=== PATIENT | male | born 1985 | race Caucasian/White ===

== ENCOUNTER 2017-02-12 21:30 | Emergency (ER) | payer SELFPAY ==
[~2017-02-12] VITALS: Ht 180.3 cm; Wt 69.6 kg
[2017-02-12 21:44] VITALS: BP 137/93; TEMP 98
[2017-02-12] MEDS ORDERED: NORCO 325 MG-7.1 TAB PO (23:19)
[2017-02-12] MEDS ORDERED: BACTRIM DS 8001 TAB PO (23:19)
[2017-02-12 23:43] VITALS: PULSE 100
== END 2017-02-12 23:46 | disposition home or self-care (01) ==
LOC: COL.ER 21:30
DX: L02.512 Cutaneous abscess of left hand (principal); L03.012 Cellulitis of left finger; F17.210 Nicotine dependence, cigarettes, uncomplicated; F12.90 Cannabis use, unspecified, uncomplicated; Z23 Encounter for immunization

== ENCOUNTER → 2017-02-14 | Outpatient (CLI) | payer SELFPAY ==
[~2017-02-14] MED LIST: BACTRIM DS 8001 TAB PO; NORCO 325 MG-7.1 TAB PO
== END ==
LOC: ZCOL.LAB 16:04
DX: Z01.89 Encounter for other specified special examinations (principal)

== ENCOUNTER 2017-02-17 09:32 | Day surgery (SDC) | payer OTHER ==
[2017-02-17] VITALS (9 sets, daily range): BP systolic 108–128; BP diastolic 57–87; PULSE 82–99; TEMP 97.4–97.6
[~2017-02-17] VITALS: Ht 172.7 cm; Wt 73.2 kg
[2017-02-17] MEDS ORDERED: NORCO 325 MG-7.1 TAB PO (15:27)
[2017-02-17 15:55] LABS: HEMATOCRIT 47.4 % (42.0-52.0); HEMOGLOBIN 15.8 g/dl (13.5-18.0); MEAN CELL VOLUME 89 fl (80.0-100.0); MEAN CORPUSCULAR HEMOGLOBIN 30 pg (27.0-31.0); MEAN CORPUSCULAR HGB CONC 33 g/dl (33.0-37.0); MEAN PLATELET VOLUME 8.7 fl (7.4-10.4); PLATELET COUNT 280 K/mm3 (130-400); RED BLOOD COUNT 5.31 M/mm3 (4.20-5.60); REDCELL DISTRIBUTION WIDTH-CV 11.8 % (11.5-14.5)
[2017-02-17 16:14] LABS: C-REACTIVE PROTEIN 1.5 mg/dL (0.0-0.9); CALCIUM 9.7 mg/dL (8.4-10.2); CREATININE, serum 0.99 mg/dL (0.66-1.25); POTASSIUM 4.6 mmol/L (3.4-5.0)
[2017-02-17 16:36] LABS: ERYTHROCYTE SEDIMENTATION RATE 7 mm/hr (0-15)
[2017-02-18] MEDS ORDERED: VANCOCIN HCL1 GM IV (07:56)
== END 2017-02-17 17:55 | disposition home or self-care (01) ==
LOC: SDCO 09:32
PROVIDERS: Orthopaedic Surgery
DX: T23.222A Burn of second degree of single left finger (nail) except thumb, initial encounter (principal); B95.62 Methicillin resistant Staphylococcus aureus infection as the cause of diseases classified elsewhere; F12.90 Cannabis use, unspecified, uncomplicated; F17.210 Nicotine dependence, cigarettes, uncomplicated; Z68.21 Body mass index [BMI] 21.0-21.9, adult; X08.8XXA Exposure to other specified smoke, fire and flames, initial encounter; Y92.511 Restaurant or cafe as the place of occurrence of the external cause
CPT/HCPCS: J0690; J2250; J2704; J2795; J3010; J3370; J7050; J7120

== ENCOUNTER 2017-02-18 18:46 | Outpatient (RCR) | payer OTHER ==
[~2017-02-18] VITALS: Ht 180.3 cm; Wt 72.2 kg
[2017-02-18 08:15] VITALS: BP 136/85; PULSE 93; TEMP 97.9
[~2017-02-18 18:46] MED LIST changes: +VANCOCIN HCL1 GM IV
[2017-02-19 07:48] VITALS: BP 119/77; PULSE 88; TEMP 97.9
[2017-02-20 08:40] LABS: HEMATOCRIT 46.3 % (42.0-52.0); HEMOGLOBIN 15.8 g/dl (13.5-18.0); MEAN CELL VOLUME 89 fl (80.0-100.0); MEAN CORPUSCULAR HEMOGLOBIN 30 pg (27.0-31.0); MEAN CORPUSCULAR HGB CONC 34 g/dl (33.0-37.0); MEAN PLATELET VOLUME 8.7 fl (7.4-10.4); PLATELET COUNT 297 K/mm3 (130-400); RED BLOOD COUNT 5.23 M/mm3 (4.20-5.60); REDCELL DISTRIBUTION WIDTH-CV 11.7 % (11.5-14.5)
[2017-02-20 08:42] LABS: ALBUMIN 4.2 gm/dL (3.5-5.0); BILIRUBIN,TOTAL 0.3 mg/dL (0.0-1.0); C-REACTIVE PROTEIN 0.6 mg/dL (0.0-0.9); CALCIUM 9.4 mg/dL (8.4-10.2); CREATININE, serum 0.76 mg/dL (0.66-1.25); POTASSIUM 4.8 mmol/L (3.4-5.0); TOTAL PROTEIN 7.2 gm/dL (6.4-8.2)
[2017-02-20 08:56] VITALS: BP 127/81; PULSE 83; TEMP 97.9
[2017-02-20 09:07] LABS: ERYTHROCYTE SEDIMENTATION RATE 5 mm/hr (0-15)
[2017-02-20 16:57] VITALS: BP 136/82; PULSE 82; TEMP 98.2
[2017-02-22 14:59] VITALS: BP 124/99; PULSE 84; TEMP 97.8
[2017-02-23 14:23] VITALS: BP 145/102; PULSE 106; TEMP 97.5
[2017-02-24 14:50] VITALS: BP 134/107; PULSE 98; TEMP 98.1
[2017-02-27 14:28] VITALS: BP 135/86; PULSE 96; TEMP 97.8
[2017-02-27 15:05] LABS: HEMATOCRIT 39.2 % (42.0-52.0); HEMOGLOBIN 13.7 g/dl (13.5-18.0); MEAN CELL VOLUME 88 fl (80.0-100.0); MEAN CORPUSCULAR HEMOGLOBIN 31 pg (27.0-31.0); MEAN CORPUSCULAR HGB CONC 35 g/dl (33.0-37.0); MEAN PLATELET VOLUME 8.9 fl (7.4-10.4); PLATELET COUNT 266 K/mm3 (130-400); RED BLOOD COUNT 4.47 M/mm3 (4.20-5.60); REDCELL DISTRIBUTION WIDTH-CV 11.9 % (11.5-14.5)
[2017-02-27 15:18] LABS: ALANINE AMINOTRANSFERASE 96 U/L (21-72); ALBUMIN 4.2 gm/dL (3.5-5.0); ALKALINE PHOSPHATASE 55 U/L (50-136); ANION GAP 7 mmol/L (7-16); AST,SGOT 39 U/L (15-37); BILIRUBIN,TOTAL 0.6 mg/dL (0.0-1.0); BLOOD UREA NITROGEN 21 mg/dL (9-20); C-REACTIVE PROTEIN < 0.5 mg/dL (0.0-0.9); CALCIUM 9.1 mg/dL (8.4-10.2); CARBON DIOXIDE 28 mmol/L (22-30); CHLORIDE 104 mmol/L (98-107); CREATINE KINASE 129 U/L (55-170); CREATININE, serum 0.91 mg/dL (0.66-1.25); GLUCOSE 103 mg/dL (74-106); POTASSIUM 4.2 mmol/L (3.4-5.0); SODIUM 139 mmol/L (137-145); TOTAL PROTEIN 7.2 gm/dL (6.4-8.2)
[2017-02-28 13:15] VITALS: BP 135/86; PULSE 96; TEMP 97.8
[2017-03-02 13:52] VITALS: BP 114/77; PULSE 118; TEMP 97.7
[2017-03-03 14:15] VITALS: BP 108/73; PULSE 94; TEMP 97.6
[2017-03-06 14:13] VITALS: BP 137/84; PULSE 91; TEMP 97.4
[2017-03-08 14:30] VITALS: BP 141/99; PULSE 104; TEMP 98.2
[2017-03-08] MEDS ORDERED: CUBICIN 500MG500 MG IV (14:54)
[2017-03-08 15:00] LABS: HEMATOCRIT 45.8 % (42.0-52.0); HEMOGLOBIN 15.7 g/dl (13.5-18.0); MEAN CELL VOLUME 87 fl (80.0-100.0); MEAN CORPUSCULAR HEMOGLOBIN 30 pg (27.0-31.0); MEAN CORPUSCULAR HGB CONC 34 g/dl (33.0-37.0); MEAN PLATELET VOLUME 9.2 fl (7.4-10.4); PLATELET COUNT 313 K/mm3 (130-400); RED BLOOD COUNT 5.29 M/mm3 (4.20-5.60); REDCELL DISTRIBUTION WIDTH-CV 12.3 % (11.5-14.5)
[2017-03-08 15:12] LABS: ALANINE AMINOTRANSFERASE 114 U/L (21-72); ALBUMIN 5.3 gm/dL (3.5-5.0); ALKALINE PHOSPHATASE 63 U/L (50-136); ANION GAP 13 mmol/L (7-16); AST,SGOT 57 U/L (15-37); BILIRUBIN,TOTAL 1.2 mg/dL (0.0-1.0); BLOOD UREA NITROGEN 26 mg/dL (9-20); CALCIUM 10.2 mg/dL (8.4-10.2); CARBON DIOXIDE 27 mmol/L (22-30); CHLORIDE 98 mmol/L (98-107); CREATINE KINASE 175 U/L (55-170); CREATININE, serum 0.85 mg/dL (0.66-1.25); GLUCOSE 105 mg/dL (74-106); POTASSIUM 4.4 mmol/L (3.4-5.0); SODIUM 137 mmol/L (137-145); TOTAL PROTEIN 8.5 gm/dL (6.4-8.2)
[2017-03-08 15:13] LABS: C-REACTIVE PROTEIN < 0.5 mg/dL (0.0-0.9)
[2017-03-08 15:26] LABS: ERYTHROCYTE SEDIMENTATION RATE 1 mm/hr (0-15)
[2017-03-10 14:30] VITALS: BP 155/98; PULSE 80; TEMP 97.3
[2017-03-11 15:34] VITALS: BP 138/94; PULSE 99; TEMP 97.6
[2017-03-13 14:33] LABS: HEMATOCRIT 40.4 % (42.0-52.0); HEMOGLOBIN 14.2 g/dl (13.5-18.0); MEAN CELL VOLUME 86 fl (80.0-100.0); MEAN CORPUSCULAR HEMOGLOBIN 30 pg (27.0-31.0); MEAN CORPUSCULAR HGB CONC 35 g/dl (33.0-37.0); MEAN PLATELET VOLUME 9.1 fl (7.4-10.4); PLATELET COUNT 249 K/mm3 (130-400); RED BLOOD COUNT 4.68 M/mm3 (4.20-5.60); REDCELL DISTRIBUTION WIDTH-CV 12.2 % (11.5-14.5)
[2017-03-13 14:34] VITALS: BP 131/85; PULSE 90; TEMP 97.6
[2017-03-13 14:43] LABS: ALANINE AMINOTRANSFERASE 57 U/L (21-72); ALBUMIN 4.5 gm/dL (3.5-5.0); ALKALINE PHOSPHATASE 46 U/L (50-136); ANION GAP 5 mmol/L (7-16); AST,SGOT 28 U/L (15-37); BILIRUBIN,TOTAL 0.7 mg/dL (0.0-1.0); BLOOD UREA NITROGEN 13 mg/dL (9-20); CALCIUM 9.3 mg/dL (8.4-10.2); CARBON DIOXIDE 29 mmol/L (22-30); CHLORIDE 102 mmol/L (98-107); CREATINE KINASE 200 U/L (55-170); CREATININE, serum 0.82 mg/dL (0.66-1.25); GLUCOSE 103 mg/dL (74-106); POTASSIUM 3.7 mmol/L (3.4-5.0); SODIUM 136 mmol/L (137-145); TOTAL PROTEIN 7.2 gm/dL (6.4-8.2)
[2017-03-13 14:49] LABS: C-REACTIVE PROTEIN < 0.5 mg/dL (0.0-0.9)
[2017-03-13 14:56] LABS: ERYTHROCYTE SEDIMENTATION RATE 1 mm/hr (0-15)
[2017-03-15 15:00] VITALS: BP 128/80; PULSE 115; TEMP 98
[2017-03-16 15:01] VITALS: BP 124/85; PULSE 111; TEMP 97.3
[2017-03-17 13:42] VITALS: BP 135/82; PULSE 102; TEMP 97.8
[2017-03-20 17:22] LABS: HEMATOCRIT 45.5 % (42.0-52.0); HEMOGLOBIN 15.8 g/dl (13.5-18.0); MEAN CELL VOLUME 87 fl (80.0-100.0); MEAN CORPUSCULAR HEMOGLOBIN 30 pg (27.0-31.0); MEAN CORPUSCULAR HGB CONC 35 g/dl (33.0-37.0); PLATELET COUNT 270 K/mm3 (130-400); RED BLOOD COUNT 5.23 M/mm3 (4.20-5.60); REDCELL DISTRIBUTION WIDTH-CV 12.5 % (11.5-14.5)
[2017-03-20 17:25] VITALS: BP 120/80; PULSE 92; TEMP 97
[2017-03-20 17:34] LABS: ALANINE AMINOTRANSFERASE 35 U/L (21-72); ALBUMIN 5.1 gm/dL (3.5-5.0); ALKALINE PHOSPHATASE 56 U/L (50-136); ANION GAP 11 mmol/L (7-16); AST,SGOT 33 U/L (15-37); BILIRUBIN,TOTAL 0.8 mg/dL (0.0-1.0); BLOOD UREA NITROGEN 14 mg/dL (9-20); CALCIUM 9.7 mg/dL (8.4-10.2); CARBON DIOXIDE 27 mmol/L (22-30); CHLORIDE 99 mmol/L (98-107); CREATININE, serum 0.87 mg/dL (0.66-1.25); GLUCOSE 108 mg/dL (74-106); POTASSIUM 4.1 mmol/L (3.4-5.0); SODIUM 138 mmol/L (137-145)
[2017-03-20 17:40] LABS: C-REACTIVE PROTEIN < 0.5 mg/dL (0.0-0.9)
[2017-03-20 18:01] LABS: ERYTHROCYTE SEDIMENTATION RATE 1 mm/hr (0-15)
[2017-03-21 15:35] VITALS: BP 158/99; PULSE 112; TEMP 97.4
[2017-03-22 16:32] VITALS: BP 120/78; PULSE 107; TEMP 97.7
[2017-03-23 14:25] VITALS: BP 109/73; PULSE 97; TEMP 98.4
[2017-03-24 15:58] VITALS: BP 126/76; PULSE 99; TEMP 97.7
[2017-03-27 14:56] VITALS: BP 118/77; PULSE 90; TEMP 97.4
[2017-03-27 15:50] LABS: HEMATOCRIT 48.1 % (42.0-52.0); HEMOGLOBIN 16.5 g/dl (13.5-18.0); MEAN CELL VOLUME 87 fl (80.0-100.0); MEAN CORPUSCULAR HEMOGLOBIN 30 pg (27.0-31.0); MEAN CORPUSCULAR HGB CONC 34 g/dl (33.0-37.0); MEAN PLATELET VOLUME 9.2 fl (7.4-10.4); PLATELET COUNT 258 K/mm3 (130-400); RED BLOOD COUNT 5.52 M/mm3 (4.20-5.60); REDCELL DISTRIBUTION WIDTH-CV 12.6 % (11.5-14.5)
[2017-03-27 16:04] LABS: ALANINE AMINOTRANSFERASE 42 U/L (21-72); ALBUMIN 4.6 gm/dL (3.5-5.0); ALKALINE PHOSPHATASE 58 U/L (50-136); ANION GAP 8 mmol/L (7-16); AST,SGOT 30 U/L (15-37); BILIRUBIN,TOTAL 0.7 mg/dL (0.0-1.0); BLOOD UREA NITROGEN 19 mg/dL (9-20); CALCIUM 9.4 mg/dL (8.4-10.2); CARBON DIOXIDE 28 mmol/L (22-30); CHLORIDE 99 mmol/L (98-107); CREATINE KINASE 63 U/L (55-170); CREATININE, serum 0.76 mg/dL (0.66-1.25); GLUCOSE 116 mg/dL (74-106); POTASSIUM 3.8 mmol/L (3.4-5.0); SODIUM 135 mmol/L (137-145); TOTAL PROTEIN 7.5 gm/dL (6.4-8.2)
[2017-03-27 16:12] LABS: C-REACTIVE PROTEIN < 0.5 mg/dL (0.0-0.9)
[2017-03-27 16:15] LABS: ERYTHROCYTE SEDIMENTATION RATE 2 mm/hr (0-15)
[2017-03-28 14:00] VITALS: BP 154/97; PULSE 98; TEMP 98.1
[2017-03-29 13:50] VITALS: BP 143/96; PULSE 113; TEMP 98.1
[2017-03-31 16:10] VITALS: BP 123/80; PULSE 84; TEMP 97.7
[2017-04-03 11:22] VITALS: BP 135/88; PULSE 100; TEMP 98
== END 2017-04-03 11:23 | disposition home or self-care (01) ==
LOC: EUO 02-19 07:00
PROVIDERS: Internal Medicine Infectious Disease; Orthopaedic Surgery
DX: A49.02 Methicillin resistant Staphylococcus aureus infection, unspecified site (principal)
CPT/HCPCS: C1751; J0878; J1644; J3370; J7050

== ENCOUNTER 2017-03-27 13:15 | Outpatient (RCR) | payer OTHER ==
[~2017-03-27 13:15] MED LIST changes: +CUBICIN 500MG500 MG IV
== END 2017-04-27 08:10 | disposition home or self-care (01) ==
LOC: WSOT 13:15
DX: T23.022D Burn of unspecified degree of single left finger (nail) except thumb, subsequent encounter (principal); B95.62 Methicillin resistant Staphylococcus aureus infection as the cause of diseases classified elsewhere; A49.01 Methicillin susceptible Staphylococcus aureus infection, unspecified site; X19.XXXD Contact with other heat and hot substances, subsequent encounter

== ENCOUNTER 2017-09-11 20:31 | Emergency (ER) | payer SELFPAY ==
[~2017-09-11] VITALS: Ht 177.8 cm; Wt 68.2 kg
[2017-09-11 20:32] VITALS: BP 141/94; TEMP 98
[2017-09-11 20:58] LABS: BASO % 0.4 % (0.0-2.0); EOS % 0.4 % (0-4.0); GRAN # 4.8 (1.4-6.5); HEMATOCRIT 39.4 % (42.0-52.0); HEMOGLOBIN 14.1 g/dl (13.5-18.0); LYMPH # 2.1 (1.2-3.4); LYMPH % 27.3 % (20.0-51.0); MEAN CELL VOLUME 85 fl (80.0-100.0); MEAN CORPUSCULAR HEMOGLOBIN 30 pg (27.0-31.0); MEAN CORPUSCULAR HGB CONC 36 g/dl (33.0-37.0); MONO # 0.7 (0.1-0.6); MONO % 8.8 % (1.7-9.3); PLATELET COUNT 222 K/mm3 (130-400); RED BLOOD COUNT 4.66 M/mm3 (4.20-5.60); REDCELL DISTRIBUTION WIDTH-CV 11.9 % (11.5-14.5)
[2017-09-11 21:13] LABS: ALBUMIN 4.3 gm/dL (3.5-5.0); BILIRUBIN,TOTAL 1.3 mg/dL (0.0-1.0); CREATININE, serum 0.79 mg/dL (0.66-1.25); POTASSIUM 3.4 mmol/L (3.4-5.0); TOTAL PROTEIN 7.1 gm/dL (6.4-8.2)
[2017-09-11 22:12] VITALS: PULSE 81
== END 2017-09-11 22:12 | disposition home or self-care (01) ==
LOC: COL.ER 20:31
PROVIDERS: Family Medicine
DX: K04.7 Periapical abscess without sinus (principal); R36.9 Urethral discharge, unspecified
CPT/HCPCS: J0696; J1885; J7030

== ENCOUNTER 2018-12-09 11:05 | Emergency (ER) | payer SELFPAY ==
[~2018-12-09] VITALS: Ht 177.8 cm; Wt 72.7 kg
[2018-12-09 11:12] VITALS: BP 125/82; TEMP 98
[2018-12-09 12:22] VITALS: PULSE 93
== END 2018-12-09 12:24 | disposition home or self-care (01) ==
LOC: COL.ER 11:05
DX: S22.32XA Fracture of one rib, left side, initial encounter for closed fracture (principal); W86.8XXA Exposure to other electric current, initial encounter
CPT/HCPCS: J1885

== ENCOUNTER 2018-12-16 19:45 | Emergency (ER) | payer SELFPAY ==
[~2018-12-16] VITALS: Ht 177.8 cm; Wt 68.2 kg
[2018-12-16 19:50] VITALS: BP 133/92; TEMP 98.8
[2018-12-16 20:23] LABS: BASO # 0.1 (0.0-0.2); BASO % 0.7 % (0.0-2.0); EOS # 0.1 (0.0-0.7); EOS % 1.3 % (0-4.0); GRAN # 3.6 (1.4-6.5); GRAN % 52.8 % (42.2-75.2); HEMATOCRIT 40.7 % (42.0-52.0); HEMOGLOBIN 13.8 g/dl (13.5-18.0); LYMPH # 2.5 (1.2-3.4); LYMPH % 36.1 % (20.0-51.0); MEAN CELL VOLUME 88 fl (80.0-100.0); MEAN CORPUSCULAR HEMOGLOBIN 30 pg (27.0-31.0); MEAN CORPUSCULAR HGB CONC 34 g/dl (33.0-37.0); MEAN PLATELET VOLUME 8.7 fl (7.4-10.4); MONO # 0.6 (0.1-0.6); MONO % 8.7 % (1.7-9.3); PLATELET COUNT 317 K/mm3 (130-400); RED BLOOD COUNT 4.65 M/mm3 (4.20-5.60); REDCELL DISTRIBUTION WIDTH-CV 12.5 % (11.5-14.5)
[2018-12-16 20:41] LABS: ALANINE AMINOTRANSFERASE 18 U/L (21-72); ALBUMIN 4.3 gm/dL (3.5-5.0); ALKALINE PHOSPHATASE 55 U/L (50-136); ANION GAP 9 mmol/L (7-16); AST,SGOT 21 U/L (15-37); BILIRUBIN,TOTAL 0.3 mg/dL (0.0-1.0); BLOOD UREA NITROGEN 21 mg/dL (9-20); C-REACTIVE PROTEIN < 0.5 mg/dL (0.0-0.9); CALCIUM 9.5 mg/dL (8.4-10.2); CARBON DIOXIDE 28 mmol/L (22-30); CHLORIDE 102 mmol/L (98-107); CREATININE, serum 0.92 (0.66-1.25); GLUCOSE 87 mg/dL (74-106); POTASSIUM 3.9 mmol/L (3.4-5.0); SODIUM 139 mmol/L (137-145); TOTAL PROTEIN 7.1 gm/dL (6.4-8.2)
[2018-12-16 20:50] LABS: TROPONIN-I < 0.012 ng/mL (0.000-0.035)
[2018-12-16 21:13] VITALS: PULSE 97
== END 2018-12-16 21:15 | disposition home or self-care (01) ==
LOC: COL.ER 19:45
PROVIDERS: Emergency Medicine
DX: S22.32XD Fracture of one rib, left side, subsequent encounter for fracture with routine healing (principal); R06.02 Shortness of breath; F17.210 Nicotine dependence, cigarettes, uncomplicated; W86.8XXD Exposure to other electric current, subsequent encounter
CPT/HCPCS: A9284

== ENCOUNTER 2019-03-07 17:26 | Emergency (ER) | payer SELFPAY | END 2019-03-07 17:58 | disposition left against medical advice (07) | LOC: COL.ER 17:26 | DX: Z72.9 Problem related to lifestyle, unspecified (principal) ==

== ENCOUNTER 2019-03-07 18:49 | Emergency (ER) | payer SELFPAY ==
[~2019-03-07] VITALS: Ht 177.8 cm; Wt 72.7 kg
[2019-03-07 22:35] VITALS: BP 132/88; PULSE 90; TEMP 98.1
== END 2019-03-07 22:18 | disposition home or self-care (01) ==
LOC: COL.ER 18:49
DX: A54.01 Gonococcal cystitis and urethritis, unspecified (principal); A56.01 Chlamydial cystitis and urethritis
CPT/HCPCS: J0696

== ENCOUNTER 2022-11-14 07:36 | Emergency (ER) | payer SELFPAY ==
[~2022-11-14] VITALS: Ht 172.7 cm; Wt 81.8 kg
[2022-11-14] MEDS ORDERED: DOXYCYCLINE 10100 MG PO (10:59)
[2022-11-14 11:07] VITALS: BP 145/78; PULSE 77; TEMP 98.3
== END 2022-11-14 11:09 | disposition home or self-care (01) ==
LOC: COL.ER 07:36
DX: R36.9 Urethral discharge, unspecified (principal); Z28.310 Unvaccinated for COVID-19
CPT/HCPCS: J0696